=== PATIENT | male | born 1955 ===

== ENCOUNTER 2018-05-30 07:42 | Outpatient (CLI) | payer OTHER | END 2018-05-30 07:43 | disposition home or self-care (01) | LOC: C.MRIC 07:42 | DX: M25.562 Pain in left knee (principal); S83.412A Sprain of medial collateral ligament of left knee, initial encounter; M25.462 Effusion, left knee; M71.22 Synovial cyst of popliteal space [Baker], left knee; M22.42 Chondromalacia patellae, left knee ==